=== PATIENT | female | born 1985 | race Caucasian/White ===

== ENCOUNTER 2021-09-19 08:53 | Emergency (ER) | payer OTHER ==
[2021-09-19] MEDS ORDERED: ONDANSETRON ODT4 MG PO (11:34)
== END 2021-09-19 11:46 | disposition home or self-care (01) ==
LOC: FER 08:53
DX: S00.03XA Contusion of scalp, initial encounter (principal); Z88.1 Allergy status to other antibiotic agents; W22.8XXA Striking against or struck by other objects, initial encounter; Y92.89 Other specified places as the place of occurrence of the external cause; Y99.0 Civilian activity done for income or pay
CPT/HCPCS: 70450